=== PATIENT | female | born 1985 | race African-American/Black ===

== ENCOUNTER 2016-06-12 01:26 | Emergency (ER) | payer OTHER ==
--- NOTE | ~2016-06-12 | CR126 ---
[facility] A Service of [facility] RADIOLOGY TEXT RESULTS PATIENT: MAURICIO SHEPARD LOCATION: SED : [birth year] UNIT #: [id number] AGE: [address]: Lowell Jones MD SEX: F ORDER DR: [id number] [place] [id number] E MR#: [id number] Acc #: [id number] NAME: MAURICIO SHEPARD : 1985 SEX: F STUDY DATE/TIME: 06/12/2016 0:57 UNIT: SED ROOM: STUDY DESCRIPTION: CR Foot Complete Min 3 View Lt Attending Physician: Lowell Jones M.D. Ordering Physician: Lowell Jones M.D. Primary Care Physician: Lynette Au M.D. MEDICAL IMAGING REPORT This report is preliminary unless electronic signature is present. EXAM 3 views of the left foot. DATE: 06/12/2016 HISTORY Dropped heavy object on the left great toe today. Great toe pain. COMPARISON None. FINDINGS Obliquely origin fracture of the proximal margin of the distal phalanx of the great toe. There is extension of the fracture line into the articular surface. Fracture line is seen predominately upon the medial aspect of the phalanx. No joint dislocation is identified. No retained radiopaque foreign body is seen in the soft tissues. IMPRESSION Obliquely origin nondisplaced intrajugular fracture of the proximal and medial aspect of the distal phalanx of the great toe. No dislocation. Dictated by... Jaqueline Pfeiffer M.D. THIS IS AN ELECTRONICALLY VERIFIED REPORT Jaqueline Pfeiffer M.D. at 06/13/2016 9:59 PM [facility]/[place] TD: 06/12/2016 07:00 JOB #: [id number] [facility] A Service of [facility] RADIOLOGY TEXT RESULTS PATIENT: MAURICIO SHEPARD LOCATION: SED : [birth year] UNIT #: [id number] AGE: [address]: Lowell Jones MD SEX: F ORDER DR: MEDICAL IMAGING REPORT Page 1 of 1
[~2016-06-12 01:26] MED LIST: PRENATAL VITAM1 EAC2
== END 2016-06-12 01:51 | disposition home or self-care (01) ==
LOC: SED 01:26
DX: S92.425A Nondisplaced fracture of distal phalanx of left great toe, initial encounter for closed fracture (principal); W20.8XXA Other cause of strike by thrown, projected or falling object, initial encounter; Y92.009 Unspecified place in unspecified non-institutional (private) residence as the place of occurrence of the external cause
CPT/HCPCS: 29405; 73630; 99283